=== PATIENT | male | born 1960 | race Caucasian/White ===

== ENCOUNTER 2017-04-24 09:55 | Outpatient (CLI) | payer OTHER ==
[~2017-04-24] VITALS: Ht 180.3 cm; Wt 121.3 kg
[~2017-04-24 09:55] MED LIST: BACITRACIN 50,000 UNIT ONE; BUPIVACAINE/PF 0.5% ONE; CANA300T PO; EPINEPHRINE 1 MG/ML, 1ML ONE; INSU100V8 SQ; METF500T9 PO; METH750T2 PO; MONT10TA9 PO; OMEP40CA6 PO; TEST1.25 TP; THROMBIN 5,000 UNIT VIAL TP ONE
[2017-04-24] MEDS ORDERED: LACTATED RINGERS 1,000 ML IV SCH (10:36)
[2017-04-24 10:38] VITALS: BP 157/94
[2017-04-24] MEDS ORDERED: LIDOCAINE 1%, 2ML SQ PRN (11:00)
[2017-04-24] MEDS ORDERED: ANAS1TAB PO (11:12)
[2017-04-24] MEDS ORDERED: EMPA25TA PO (11:12)
[2017-04-24] MEDS ORDERED: GABA300C10 PO (11:12)
[2017-04-24] MEDS ORDERED: KETAMINE 10 MG/ML, 20ML ONE (12:38)
[2017-04-24] MEDS ORDERED: MIDAZOLAM 1 MG/ML, 2ML ONE (12:39)
[2017-04-24] MEDS ORDERED: FENTANYL PF 100 MCG/2ML ONE ×2 (12:39)
[2017-04-24] MEDS ORDERED: PROPOFOL 50 ML ONE (12:47)
[2017-04-24] MEDS ORDERED: REMIFENTANIL 2 MG ONE (14:04)
== END 2017-04-24 14:45 | disposition home or self-care (01) ==
LOC: UNDOADMIN 09:55 → OR 09:55 → ORIP 09:55 → EDSTATUS 12:30 → UNDODISIN 14:45 → OR 14:45
PROVIDERS: ATTEND Neurological Surgery
DX: Z01.812 Encounter for preprocedural laboratory examination (principal); M47.9 Spondylosis, unspecified
CPT/HCPCS: 82962; J0171; J2250; J2704; J3010; J3490; J7120